=== PATIENT | male | born 1950 | race African-American/Black ===

== ENCOUNTER 2016-09-02 12:19 | Emergency (ER) | payer MEDICARE, BC ==
[2016-09-02 13:18] LABS: A/G RATIO 0.8 (0.7-1.9); ALBUMIN 3.4 G/DL (3.5-5.0); ALKALINE PHOSPHATASE 94 U/L (45-117); BUN (BLOOD UREA NITROGEN) 36 MG/DL (6-23); CALCIUM, SERUM 9.2 MG/DL (8.5-10.4); CHLORIDE, SERUM 99 MMOL/L (96-112); CO2 (CARBON DIOXIDE) 25 MMOL/L (24-34); CREATININE 3.28 MG/DL (0.70-1.30); GFR AFRICAN AMERICAN 22 ML/MIN (>=60); GFR NON AFRICAN AMERICAN 19 ML/MIN (>=60); GLOBULIN 4.5 G/DL (2.5-4.1); GLUCOSE, SERUM 124 MG/DL (60-99); POTASSIUM, SERUM 4.9 MMOL/L (3.5-5.3); SGOT(AST) 47 U/L (5-40); SGPT(ALT) 38 U/L (5-65); SODIUM, SERUM 131 MMOL/L (135-148); TOTAL BILIRUBIN 0.6 MG/DL (0-1.2); TOTAL PROTEIN 7.9 G/DL (6.0-8.5)
[2016-09-02] MEDS ORDERED: NEUR300 PO ×2 (13:31→13:32)
[2016-09-02] MEDS ORDERED: AMITIZA24 PO (13:32)
[2016-09-02] MEDS ORDERED: SINGULAIR1 PO (13:32)
[2016-09-02] MEDS ORDERED: VITD PO (13:32)
[2016-09-02] MEDS ORDERED: L20 PO (13:33)
[2016-09-02] MEDS ORDERED: SYNTHROID200 MCG PO (13:33)
[2016-09-02] MEDS ORDERED: PROAIR HFA INH (13:34)
[2016-09-02] MEDS ORDERED: HALF81 PO (13:34)
[2016-09-02] MEDS ORDERED: ZETIA PO (13:34)
[2016-09-02] MEDS ORDERED: MICARDIS80 PO (13:41)
[2016-09-02] MEDS ORDERED: HUMULIN R500 UNIT/1 SC ×2 (13:42)
[2016-09-02 14:18] LABS: BASOPHILS 0.2 %; BASOPHILS ABSOLUTE 0.01 10/3/uL (0.0-0.16); EOSINOPHILS 0.7 %; EOSINOPHILS ABSOLUTE 0.04 10/3/uL (0.0-0.53); HEMATOCRIT 44.1 % (40.0-51.0); HEMOGLOBIN 14.9 g/dL (13.6-17.8); IMMATURE GRANULOCYTES 0.2 %; IMMATURE GRANULOCYTES ABSOLUTE 0.01 10/3/uL (0.0-0.11); LYMPHOCYTES 37.8 %; LYMPHOCYTES ABSOLUTE 2.31 10/3/uL (0.67-4.30); MEAN CORPUS HGB CONC 33.8 g/dL (32.0-36.0); MEAN CORPUSCULAR HEMOGLOB 28.8 pg (26.0-34.0); MEAN CORPUSCULAR VOLUME 85.1 fL (80-100); MEAN PLATELET VOLUME 9.5 fL (9.2-13.0); MONOCYTES ABSOLUTE 0.55 10/3/uL (0.21-1.20); NEUTROPHILS 52.1 %; NEUTROPHILS ABSOLUTE 3.19 10/3/uL (2.02-8.40); PLATELET COUNT 230 10/3/uL (150-400); RBC DISTRIBUTION WIDTH 14.6 % (12.0-16.0); RED CELL COUNT 5.18 10/6/uL (4.7-6.1); WHITE BLOOD CELLS 6.1 10/3/uL (4.5-10.5)
[2016-09-02 14:19] LABS: MANUAL DIFF NO %
[2016-09-02 14:25] LABS: INTERNATIONAL NORMAL RATI 1.1 UNITS (-); PROTIME (NOT ORD) 14.4 SEC (12.0-14.5)
[2016-09-02 14:26] LABS: PARTIAL THROMBO TIME 35.4 SEC (22.5-37.2)
[2016-09-02 14:35] LABS: LACTATE 1.3 MMOL/L (0.3-2.4)
[2016-09-02 14:41] LABS: PROCALCITONIN 0.18 ng/mL (<0.5)
== END 2016-09-02 16:47 | disposition home or self-care (01) ==
LOC: ER 12:19
PROVIDERS: Emergency Medicine
DX: E10.22 Type 1 diabetes mellitus with diabetic chronic kidney disease (principal); I12.9 Hypertensive chronic kidney disease with stage 1 through stage 4 chronic kidney disease, or unspecified chronic kidney disease; N18.9 Chronic kidney disease, unspecified; F17.200 Nicotine dependence, unspecified, uncomplicated; Z79.899 Other long term (current) drug therapy; Z79.82 Long term (current) use of aspirin; Z79.4 Long term (current) use of insulin
CPT/HCPCS: 71010; 80053; 81001; 82962; 83605; 84145; 85025; 85610; 85730; 87040; 93005; 99284